=== PATIENT | male | born 1995 | race Caucasian/White ===

== ENCOUNTER 2021-01-28 02:22 | Emergency (ER) | payer OTHER ==
[~2021-01-28 02:22] MED LIST: NORCO 5-325 TA1 EACH PO; PERCOCET 5/325 T1 EA PO
[2021-01-28 02:56] LABS: HEMOGLOBIN 16.5 gm/dl (14.0-17.5); RED BLOOD COUNT 4.95 M/UL (4.20-5.50); WHITE BLOOD COUNT 10.4 K/UL (4.5-11.0)
[2021-01-28 03:22] LABS: BUN/CREATININE RATIO 17 (0-10)
[2021-01-28] MEDS ORDERED: ZOFRAN ODT 4 MG4 MG PO (04:49)
[2021-01-28] MEDS ORDERED: FLOMAX 0.4 MG0.4 MG PO (04:49)
[2021-01-28] MEDS ORDERED: HYDROCODON-ACE1 EAC4 PO (04:49)
== END 2021-01-28 05:43 | disposition home or self-care (01) ==
LOC: ER1 02:22
PROVIDERS: Student in an Organized Health Care Education/Training Program
DX: N13.2 Hydronephrosis with renal and ureteral calculous obstruction (principal); F17.210 Nicotine dependence, cigarettes, uncomplicated
CPT/HCPCS: 80053; 81001; 82550; 82553; 83690; 85025; 85610; 85730; 93005; 96374; 96375; 99284; J1885; J2270; J2405; Q9967